=== PATIENT | male | born 1955 | race Caucasian/White ===

== ENCOUNTER → 2023-02-14 | Outpatient (CLI) | payer OTHER ==
--- NOTE | 2023-02-14 16:10 | XR ---
EXAMINATION TYPE: XR hand complete RT DATE OF EXAM: 02/14/2023 4:04 PM INDICATION: Patient age:Male; 67 years old; Reason for study: S60.221A CONTUSION OF RIGHT HAND, INITIAL ENCOUN; [facility]. COMPARISON: None TECHNIQUE: Frontal, lateral and oblique views of the right hand were obtained. FINDINGS: No acute fracture or dislocation. Remote ulnar styloid process injury. 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 Soft tissue edema over the dorsal aspect of the metacarpals. No radio paque foreign body. IMPRESSION: 1. No acute osseous pathology. 2. Soft tissue edema over the dorsal aspect of the metacarpals. 3. Severe degenerative changes at the first MCP joint.
== END | disposition home or self-care (01) ==
LOC: RADXRMAIN 15:55
PROVIDERS: ATTEND Emergency Medicine
DX: S60.221A Contusion of right hand, initial encounter (principal); M18.11 Unilateral primary osteoarthritis of first carpometacarpal joint, right hand